=== PATIENT | male | born 1960 | race Caucasian/White ===

== ENCOUNTER 2023-09-04 14:13 | Emergency (ER) | payer OTHER ==
[~2023-09-04] VITALS: Ht 170.2 cm; Wt 106.6 kg
[2023-09-04] MEDS ORDERED: PRED20 PO ×2 (14:40→17:41)
[2023-09-04] MEDS ORDERED: ALBU90OI INH (14:40)
[2023-09-04] MEDS ORDERED: Ropinirole HCl0.5 MG (14:41)
[2023-09-04] MEDS ORDERED: Hytrin2 MG PO (14:41)
[2023-09-04] MEDS ORDERED: ASMANEX HFA13 G4 (14:41)
[2023-09-04] MEDS ORDERED: Vitamin D1000 UNI1 PO (14:42)
[2023-09-04] MEDS ORDERED: STIOLTO RESPIMAT4 G1 INH (14:42)
[2023-09-04] MEDS ORDERED: NICODERM CQ1 EA25 TD (14:42)
[2023-09-04] MEDS ORDERED: AMLO5 PO (14:43)
[2023-09-04 15:05] LABS: BASOPHILS ABSOLUTE AUTO 0.15 K/mm3 (0.00-0.23); BASOPHILS PERCENT AUTO 2 % (0-2); EOSINOPHILS ABSOLUTE AUTO 0.24 K/mm3 (0.00-0.68); EOSINOPHILS PERCENT AUTO 4 % (0-6); Hematocrit 47.8 % (37.0-53.0); Hemoglobin 16.3 g/dL (13.5-17.5); IMMATURE GRAN ABSOLUTE AUTO 0.02 K/mm3 (0.00-0.10); IMMATURE GRAN PERCENT AUTO 0 % (0-1); LYMPHOCYTES ABSOLUTE AUTO 2.04 K/mm3 (0.84-5.20); LYMPHOCYTES PERCENT AUTO 30 % (21-46); MONOCYTES ABSOLUTE AUTO 0.75 K/mm3 (0.16-1.47); MONOCYTES PERCENT AUTO 11 % (4-13); Mean Corpuscular HGB 32.3 pg (26.0-34.0); Mean Corpuscular HGB Conc 34.1 g/dL (31.5-36.5); Mean Corpuscular Volume 95 fL (80-100); Mean Platelet Volume 10.2 fL (9.1-12.4); NEUTROPHILS PERCENT AUTO 54 % (41-73); Platelet Count 210 K/mm3 (150-400); RDW Coefficient Variation 12.7 % (11.7-14.2); RDW Standard Deviation 43.2 fL (35.1-46.3); Red Blood Cell Count 5.05 M/mm3 (4.30-5.90)
[2023-09-04 15:08] LABS: Albumin, Blood 3.9 g/dL (3.4-5.0); Albumin/Globulin Ratio 0.9 (0.8-1.8); Bilirubin, Total 0.8 mg/dL (0.1-1.0); Bun/Creatinine Ratio 27.5 (12.0-20.0); Calcium, Blood 9.3 mg/dL (8.5-10.1); Creatinine, Blood 0.58 mg/dL (0.60-1.20); Globulin, Blood 4.3 g/dL (2.2-4.0); Total Protein, Blood 8.2 g/dL (6.4-8.2)
[2023-09-04 15:09] LABS: Potassium, Blood 5.5 mmol/L (3.5-5.5)
[2023-09-04 15:35] LABS: Base Excess Venous 4.6 mmol/L; Bicarbonate Venous 26.9 mmol/L (24.0-30.0); PCO2 Venous 49.1 mmHg (38-42); pH Blood Venous 7.39 (7.34-7.37)
[2023-09-04 16:01] LABS: Influenza A, PCR NEGATIVE (NEGATIVE); Influenza B, PCR NEGATIVE (NEGATIVE); Resp Syncytial Virus, PCR NEGATIVE (NEGATIVE); SARS-Cov-2 (COVID-19) PCR, MMC NEGATIVE (NEGATIVE)
[2023-09-04] MEDS ORDERED: AZIT250 PO (17:41)
[2023-09-04] MEDS ORDERED: HYDHCL25 PO (17:41)
[2023-09-04] MEDS ORDERED: AMOCLA875 PO (17:41)
[2023-09-04 17:45] VITALS: BP 150/93
[2023-09-05] MEDS ORDERED: PRED20 PO (14:44)
[2023-09-05] MEDS ORDERED: AZIT250 PO (14:44)
[2023-09-05] MEDS ORDERED: HYDHCL25 PO (14:44)
== END 2023-09-04 18:06 | disposition home or self-care (01) ==
LOC: ER 14:13
PROVIDERS: Student in an Organized Health Care Education/Training Program
DX: J44.1 Chronic obstructive pulmonary disease with (acute) exacerbation (principal); J18.9 Pneumonia, unspecified organism; F41.9 Anxiety disorder, unspecified; F17.290 Nicotine dependence, other tobacco product, uncomplicated; F12.10 Cannabis abuse, uncomplicated; Z20.822 Contact with and (suspected) exposure to COVID-19; I10 Essential (primary) hypertension; G47.33 Obstructive sleep apnea (adult) (pediatric); Z79.52 Long term (current) use of systemic steroids; Z79.899 Other long term (current) drug therapy
CPT/HCPCS: 0241U; 71045; 80053; 82803; 83880; 84484; 85025; 93005; 93010; 94644; 94660; 94664; 96365; 96375; 99285-25; A9270; J2060; J3475

== ENCOUNTER 2024-11-19 13:21 | Inpatient (IN) | payer OTHER ==
[~2024-11-19] VITALS: Ht 175.3 cm; Wt 102.8 kg
[~2024-11-19 13:21] MED LIST: ALBU90OI INH; AMLO5 PO; AMOCLA875 PO; ASMANEX HFA13 G4 INH; AZIT250 PO; HYDHCL25 PO; Hytrin2 MG PO; IBUP800 PO; LIDO700A20 TOP; NICODERM CQ1 EA25 TD; PRED20 PO; Ropinirole HCl0.5 MG PO; STIOLTO RESPIMAT4 G1 INH; Vitamin D1000 UNI1 PO
[2024-11-19] MEDS ORDERED: Albuterol 2.5 MG/3 ML VIAL INH SCH ×2 (13:30→14:50)
[2024-11-19] MEDS ORDERED: Ipratropium/Albuterol SulF 2.5-0.5MG/3 ML Amp INH ONE (13:30)
[2024-11-19 13:38] LABS: Base Excess Venous 5.2 mmol/L; Bicarbonate Venous 26.2 mmol/L (24.0-30.0); PCO2 Venous 62.3 mmHg (38-42); pH Blood Venous 7.31 (7.34-7.37)
[2024-11-19 13:41] LABS: BASOPHILS ABSOLUTE AUTO 0.08 K/mm3 (0.00-0.23); BASOPHILS PERCENT AUTO 1 % (0-2); EOSINOPHILS ABSOLUTE AUTO 0.03 K/mm3 (0.00-0.68); EOSINOPHILS PERCENT AUTO 1 % (0-6); Hematocrit 48.7 % (37.0-53.0); Hemoglobin 16.9 g/dL (13.5-17.5); IMMATURE GRAN ABSOLUTE AUTO 0.03 K/mm3 (0.00-0.10); IMMATURE GRAN PERCENT AUTO 1 % (0-1); LYMPHOCYTES ABSOLUTE AUTO 1.54 K/mm3 (0.84-5.20); LYMPHOCYTES PERCENT AUTO 25 % (21-46); MONOCYTES ABSOLUTE AUTO 1.15 K/mm3 (0.16-1.47); MONOCYTES PERCENT AUTO 18 % (4-13); Mean Corpuscular HGB 32.4 pg (26.0-34.0); Mean Corpuscular HGB Conc 34.7 g/dL (31.5-36.5); Mean Corpuscular Volume 94 fL (80-100); Mean Platelet Volume 10.1 fL (9.1-12.4); NEUTROPHILS ABSOLUTE AUTO 3.44 K/mm3 (1.96-9.15); NEUTROPHILS PERCENT AUTO 55 % (41-73); Platelet Count 150 K/mm3 (150-400); RDW Coefficient Variation 12.7 % (11.7-14.2); RDW Standard Deviation 43.6 fL (35.1-46.3); Red Blood Cell Count 5.21 M/mm3 (4.30-5.90); White Blood Cell Count 6.27 K/mm3 (4.00-11.30)
[2024-11-19 14:02] LABS: Albumin, Blood 3.9 g/dL (3.4-5.0); Albumin/Globulin Ratio 0.9 (0.8-1.8); Bilirubin, Total 0.7 mg/dL (0.1-1.0); Bun/Creatinine Ratio 21.9 (12.0-20.0); Calcium, Blood 8.9 mg/dL (8.5-10.1); Creatinine, Blood 0.64 mg/dL (0.60-1.20); Globulin, Blood 4.3 g/dL (2.2-4.0); Potassium, Blood 4.3 mmol/L (3.5-5.5); Total Protein, Blood 8.2 g/dL (6.4-8.2)
[2024-11-19] MEDS ORDERED: Azithromycin 500 MG in NS 250 ML IV ONE (14:50)
[2024-11-19 15:28] LABS: CORONAVIRUS COVID-19 AG Negative (NEGATIVE); INFLUENZA A AG Negative (NEGATIVE); INFLUENZA B AG Negative (NEGATIVE)
[2024-11-19] MEDS ORDERED: MethylPREDNISolone Sod Succ 125 MG Vial IV SCH (16:00)
[2024-11-19] MEDS ORDERED: Ipratropium/Albuterol SulF 2.5-0.5MG/3 ML Amp INH SCH (16:00)
[2024-11-19] MEDS ORDERED: HydrALAZINE HCl 20 MG / ML 1ML Vial IV PRN (16:00)
[2024-11-19] MEDS ORDERED: FLU VACC TS2024-25(6MOS UP)/PF 45 MCG/0.5 ML SYRINGE IM PRN (16:00)
[2024-11-19 17:36] VITALS: BP 107/86
--- NOTE | 2024-11-19 18:54 | NUR ---
PT ARRIVED FROM THE ER, PT WAS ABLE TO STAND AND TRANSFER. PT ON 6L OF O2 STILL GETTNG SOB WITH EXERTION TRIPODDING, PT SWITCHED BACK RIHT AWAY TO BIPAP WITH 40% FIO2, PT TOLERATING WELL AT THIS TIME, VITALS HRR SR 90'S, SBP 107, SATS ABOVE 90% ON BIPAP, AFEBRILE. PT ALERT AND ORIENTED X4, PLEASANT AND COOPERATIVE WITH CARES. NOW RESTING IN BED ESTHER REPORT TO ONCOMNG SHIFT
[2024-11-19 20:00] VITALS: BP 97/70
[2024-11-19 23:30] VITALS: BP 112/78
[2024-11-20 04:34] VITALS: BP 116/75
--- NOTE | 2024-11-20 05:29 | NUR ---
SHIFT SUMMARY PT ALERT/OX4, BUT DID SLEEP THROUGH MOST OF SHIFT. ALWAYS EASILY AROUSABLE. PT REMAINED ON BIPAP T/O SHIFT. CURRENT BIPAP SETTINGS 18/8 25%. NOTABLE INCREASED WORK OF BREATHING AND ACCESSORY MUSCLE USE. SATTING ABOVE 90%. PT IN A SINUS RHYTHM, BUT HAD FEW VERY BRIEF EPISODES OF BRADYCARDIA INTO THE 40'S WITHOUT ACCOMPANYING SYMPTOMS. PT UNSURE OF HOME MEDICATIONS, [facility]. AWAITING FAXED MED REC. NO ACUTE EVENTS THIS SHIFT.
[2024-11-20 05:34] LABS: Bun/Creatinine Ratio 28.3 (12.0-20.0); Calcium, Blood 8.7 mg/dL (8.5-10.1); Creatinine, Blood 0.57 mg/dL (0.60-1.20); Potassium, Blood 4.3 mmol/L (3.5-5.5)
[2024-11-20] MEDS ORDERED: Pantoprazole Sodium 20 MG Tab PO SCH (06:00)
[2024-11-20] MEDS ORDERED: HyDROXyzine HCl 25 MG Tab PO PRN (07:55)
[2024-11-20] MEDS ORDERED: Albuterol HFA200 ACT/6.7 GM INH INH PRN (08:25)
[2024-11-20 08:47] VITALS: BP 140/97
[2024-11-20] MEDS ORDERED: Cholecalciferol 1000 Unit Tablet (=25MCG) PO SCH (09:00)
[2024-11-20] MEDS ORDERED: CefTRIAXone Sodium 1,000 MG in NS 100 ML IV SCH (09:00)
[2024-11-20] MEDS ORDERED: Nicotine 14 MG PATCH TOP SCH ×2 (09:00)
[2024-11-20] MEDS ORDERED: Azithromycin 250 MG Tab PO SCH (09:00)
[2024-11-20] MEDS ORDERED: Enoxaparin 40 MG/0.4 ML SYR SC SCH (09:00)
[2024-11-20 12:02] VITALS: BP 122/93
[2024-11-20 16:47] VITALS: BP 112/73
--- NOTE | 2024-11-20 17:34 | NUR ---
Shift Summary Pt alert, oriented 4; anxious at times. Up with sba. Pt denies pain, chest pain/pressure, nausea, dizziness and numb/tingling. Pt reports increased sob while off the bipap, attempted 2 to take bipap off, desaturated quickly. Bipap 18/8 25% fi02. Tele sinus 70's, bp stable. Abd soft, nontender +bt, large bm during shift. Other vss. No other acute changes noted. Will continue to monitor.
[2024-11-20 19:45] VITALS: BP 110/69
[2024-11-20] MEDS ORDERED: Doxazosin Mesylate 2 MG Tab PO SCH (21:00)
[2024-11-20] MEDS ORDERED: Acetaminophen 325 MG TABLET PO ONE (22:00)
[2024-11-21 04:52] VITALS: BP 114/75
--- NOTE | 2024-11-21 05:04 | NUR ---
SHIFT SUMMARY PT A/O, ENDORSES HEADCHE 05/08, TREATED PER NOV. TRANSITIONED FROM BIPAP TO HOME CPAP AND MAINTAINING O2 SATURATION ABOVE 90%. PT TOLERATING CPAP WELL. NO ACUTE EVENTS THIS SHIFT.
[2024-11-21 07:34] VITALS: BP 128/68
[2024-11-21] MEDS ORDERED: rOPINIRole HCl 0.25 MG Tab PO ONE (08:30)
[2024-11-21] MEDS ORDERED: Fluticasone 0.05% Nasal Spray SCH (09:00)
[2024-11-21 14:49] VITALS: BP 115/86
--- NOTE | 2024-11-21 14:52 | NUR ---
PT TRANSITIONED TO MEDICAL NO TELE. NO ACUTE CHANGE FOR THE SHIFT, PT ABLE TO TOLERATE 6L OF O2 VIA NASAL CANNULA, MOSTLY ON HOME BIPAP WHEN RESTING. PT WAS VERY ANXIOUS THIS MORNING GETTING SOB WITH EXERTION PT WAS EDUCATED ON DEEP BREATHING EXERCISES, WAS GIVEN A DOSE OF HYDROXYZINE AND A ONE TIME DOSE OF REQUIP FOR RESTLESS LEG SYNDROME, PT SLEPT SINCE THEN. PT ABLE TO EAT BREAKFAST REFUSED LUNCH DUE TO PT SLEEPING. NO OTHER ISSUES ENCOUNTERED FOR THE SHIFT. PT TRANSFERRED VIA WHEELCHAIR ALL BELONGINGS SENT WITH THE PT, DAUGHTER ROE MADE AWARE VIA PHONE CALL
--- NOTE | 2024-11-21 14:53 | NUR ---
ARRIVAL PT ARRIVED TO UNIT FROM PACU. REPORT RECIEVED FROM PCU, RN. BELONGINGS AND HOME BIPAP BROUGHT WITH PATIENT. SITTING UP IN CHAIR ON 6L NASAL CANULA. SHORT OF BREATH WITH EXERTION BUT RECOVERING AND SATS AT 97%. RT IN ROOM GIVING BREATHING TREATMENT AT THIS TIME.
[2024-11-21 19:43] VITALS: BP 122/81
[2024-11-21] MEDS ORDERED: rOPINIRole HCl 0.25 MG Tab PO SCH (21:00)
[2024-11-22 05:25] VITALS: BP 115/80
--- NOTE | 2024-11-22 06:07 | NUR ---
NOC SHIFT SUMMARY- PT STILL HAVING SOB W/ MINIMAL EXERTION. PT HAS SLEPT FOR MOST OF SHIFT. PT WEARING CPAP AND SPO2 > 90%. PT VOIDING AND DRINKING FLUIDS. CALL LIGHT IN REACH.
[2024-11-22 07:09] VITALS: BP 104/72
[2024-11-22] MEDS ORDERED: MethylPREDNISolone Sod Succ 125 MG Vial IV SCH (09:00)
[2024-11-22 16:48] VITALS: BP 131/76
--- NOTE | 2024-11-22 16:52 | NUR ---
REPORT GIVEN TO NED REBOLLEDO. PT TO TRANSFER TO ROOM 339.
[2024-11-22 17:17] VITALS: BP 128/87
--- NOTE | 2024-11-22 17:17 | NUR ---
ASSUMED CARE OF PATIENT. ARRIVED TO FLOOR VIA W/C ACCOMPANIED BY MOLINA PELAYO AND STUDENT NURSE. 4LPM/NC. TRIPOD POSTURING WITH SHALLOW BREATHS. IMMEDIATELY PLACED ON BiPap c CONTINUOUS BiOx. LUNG SOUNDS DIMINISHED T/O c COARSE CRACKLES IN LLL.
--- NOTE | 2024-11-22 17:27 | NUR ---
TRANSFERRED PT TO ROOM 339. TRANSFERRED BELONGINGS, MEDS, AND CHART. MOLINA OVIEDO, BEDSIDE.
--- NOTE | 2024-11-22 18:28 | NUR ---
END OF SHIFT SUMMARY: A&Ox4. UNCOOPERATIVE c HOME O2 EVAL TODAY; INSISTS ON KEEPING BiPap ON AT MOST TIMES. CALLS APPROPRIATELY AND IS ABLE TO ADVOCATE NEEDS EFFECTIVELY. CONTINENT OF BOWEL AND BLADDER. USES BSC DUE TO OXYGEN DEMANDS. EXTREMELY HIGH ANXIETY REGARDING DEOXYGENATING AND DYSPNEA WITH ANY EXERTION. NO PAIN. BED IN LOWEST POSITION, CALL LIGHT WITHIN REACH, ALL NEEDS MET. REPORT TO ONCOMING NURSE.
[2024-11-22 19:44] VITALS: BP 115/82
--- NOTE | 2024-11-23 04:13 | NUR ---
SHIFT SUMMARY 64 YR M ADMITTED ON 11/19/24. FULL CODE. NO ACUTE CHANGES THIS SHIFT. PT HAS WORN BIPAP FOR ENTIRE SHIFT. HE SAT AT BEDSIDE FOR ABOUT AN HOUR INTO THE SHIFT THEN WENT TO BED. O2 SATS HAVE REMAINED WNL. PT CALLS APPROPRIATELY FOR ASSISTANCE AND USES THE URINAL AT BEDSIDE. WILL CONTINUE TO MNOITOR. BED IN LOW POSITION AND CALL LIGHT IN REACH.
[2024-11-23 04:37] VITALS: BP 129/88
[2024-11-23 07:38] VITALS: BP 139/89
[2024-11-23] MEDS ORDERED: PRED20 PO (15:46)
[2024-11-23] MEDS ORDERED: DOXY100 PO (15:47)
--- NOTE | 2024-11-23 16:38 | NUR ---
DISCHARGE NOTE: PT VERBALIZED UNDERSTANDING OF DISCHARGE INSTRUCTIONS AND MEDICATIONS ORDERED. PT EXPERIENCED DYSPNEA WITH ATTEMPTS TO TRANSFER TO WHEELCHAIR. MD TO BEDSIDE TO ASSESS PATIENT. PT EXPRESSED DESIRE TO LEAVE EVEN WITH THE SHORTNESS OF BREATH. HE WAS ESCORTED TO HIS DAUGHTER'S CARE BY THIS RN WITH 2L NC. PT DENIES NEEDS AT TIME OF DISCHARGE.
== END 2024-11-23 16:29 | disposition home health service (06) | DRG 193 ==
LOC: ER 13:21 → PCU 15:56 → SURS 15:56 → MEDS 15:56 → PCU 17:25 → SURS 11-21 14:50 → MEDS 11-22 17:21
PROVIDERS: Student in an Organized Health Care Education/Training Program; ADMIT Internal Medicine
PROC: 5A09457 Assistance with Respiratory Ventilation, 24-96 Consecutive Hours, Continuous Positive Airway Pressure (ICD-10-PCS; principal; 2024-11-19)
DX: J18.9 Pneumonia, unspecified organism (principal); J96.01 Acute respiratory failure with hypoxia; J96.02 Acute respiratory failure with hypercapnia; J44.1 Chronic obstructive pulmonary disease with (acute) exacerbation; J44.0 Chronic obstructive pulmonary disease with (acute) lower respiratory infection; F41.9 Anxiety disorder, unspecified; I10 Essential (primary) hypertension; F17.210 Nicotine dependence, cigarettes, uncomplicated; G47.33 Obstructive sleep apnea (adult) (pediatric); Z71.6 Tobacco abuse counseling; Z87.19 Personal history of other diseases of the digestive system; Z79.899 Other long term (current) drug therapy; Z79.1 Long term (current) use of non-steroidal anti-inflammatories (NSAID); Z79.2 Long term (current) use of antibiotics
CPT/HCPCS: 36415; 71045; 80048; 80053; 82803; 83735; 85025; 87428-QW; 93005; 93010; 94640; 94644; 94645; 94660; 94664; 94761; 94762; 99285-25; A9270; J0456; J0696; J1650; J2470; J2919; J7050

== ENCOUNTER 2025-08-28 18:19 | Inpatient (IN) | payer OTHER ==
[~2025-08-28] VITALS: Ht 167.6 cm; Wt 98.6 kg
[~2025-08-28 18:19] MED LIST changes: +DOXY100 PO
[2025-08-28] MEDS ORDERED: Albuterol 2.5 MG/3 ML VIAL INH SCH (18:35)
[2025-08-28 19:20] LABS: BASOPHILS ABSOLUTE AUTO 0.20 K/mm3 (0.00-0.23); BASOPHILS PERCENT AUTO 3 % (0-2); EOSINOPHILS ABSOLUTE AUTO 0.31 K/mm3 (0.00-0.68); EOSINOPHILS PERCENT AUTO 4 % (0-6); Hematocrit 48.9 % (37.0-53.0); Hemoglobin 16.3 g/dL (13.5-17.5); IMMATURE GRAN ABSOLUTE AUTO 0.04 K/mm3 (0.00-0.10); IMMATURE GRAN PERCENT AUTO 1 % (0-1); LYMPHOCYTES ABSOLUTE AUTO 2.90 K/mm3 (0.84-5.20); LYMPHOCYTES PERCENT AUTO 39 % (21-46); MONOCYTES ABSOLUTE AUTO 0.54 K/mm3 (0.16-1.47); MONOCYTES PERCENT AUTO 7 % (4-13); Mean Corpuscular HGB Conc 33.3 g/dL (31.5-36.5); Mean Corpuscular Volume 96 fL (80-100); NEUTROPHILS ABSOLUTE AUTO 3.53 K/mm3 (1.96-9.15); NEUTROPHILS PERCENT AUTO 47 % (41-73); NRBC ABSOLUTE 0.00 K/mm3 (0.00-0.02); NRBC Auto 0.0 /100 WBC (0.0-0.2); Platelet Count 219 K/mm3 (150-400); RDW Coefficient Variation 12.2 % (11.7-14.2); RDW Standard Deviation 43.1 fL (35.1-46.3)
[2025-08-28 19:34] LABS: Alanine Aminotransfer (ALT/SGP 134.0 U/L (12-78); Albumin, Blood 3.9 g/dL (3.4-5.0); Albumin/Globulin Ratio 1.0 (0.8-1.8); Anion Gap 10.0 mmol/L (3-11); Aspartate Aminotrans (AST/SGOT 110.0 U/L (12-37); Bilirubin, Total 0.5 mg/dL (0.1-1.0); Blood Urea Nitrogen 11.0 mg/dL (8-24); CO2, Blood 25.0 mmol/L (21-32); Calcium, Blood 8.3 mg/dL (8.5-10.1); Chloride, Blood 109.0 mmol/L (98-108); Creatinine, Blood 0.53 mg/dL (0.60-1.20); Globulin, Blood 4.0 g/dL (2.2-4.0); Glucose, Blood 179.0 mg/dL (70-99); Potassium, Blood 4.4 mmol/L (3.5-5.5); Sodium, Blood 140.0 mmol/L (136-145); Total Protein, Blood 7.9 g/dL (6.4-8.2)
[2025-08-28 19:35] LABS: pH Blood Venous 7.31 (7.34-7.37)
[2025-08-28] MEDS ORDERED: LORazepam 2 MG/ML 1ML Injection IV ONE (19:35)
[2025-08-28] MEDS ORDERED: FLU VACC TS2025(65UP)/MF59C/PF 45 MCG/0.5 ML SYRINGE IM SCH (21:10)
[2025-08-28 21:11] LABS: Ethanol (Alcohol), Blood, Med 201.0 mg/dL
[2025-08-28] MEDS ORDERED: LORazepam 2 MG/ML 1ML Injection IV PRN (21:15)
[2025-08-28] MEDS ORDERED: Ipratropium/Albuterol SulF 2.5-0.5MG/3 ML Amp INH SCH (21:15)
[2025-08-28 21:56] LABS: pH Blood Venous 7.32 (7.34-7.37)
[2025-08-28 23:14] VITALS: BP 145/94
--- NOTE | 2025-08-29 00:26 | NUR ---
TRANSFER TO PCU RECEIVED REPORT FROM MEDICAL PLANNER AT 2303. PT ARRIVED TO UNIT AT 2308. SKIN ASSESSMENT DONE WITH MOLINA JASON. PT AOX4 THOUGH HAS SOME CONFUSION REGARDING HIS HOME MEDICATIONS. STATES HIS DAUGHTER ROE WILL BE ABLE TO REVIEW HIS MED LIST IN THE AM WHEN SHE COMES TO VISIT. PT DOES ADMIT TO DAILY DRINKING BUT COULD NOT STATE AN AMOUNT. STATED HIS LAST DRINK WAS PRIOR TO COMING TO THE HOSPITAL. PT STATES HE ALSO SMOKES 1-2 CIGARETTES PER DAY AND HAS SMOKED FOR MOST OF HIS LIFE. IS NOT INTERESTED IN SMOKING CESSATION INFORMATION AT THIS TIME. PT ON CPAP, TOLERATING WELL. SPO2 >94%. PT WITH SOME NON-BLANCHABLE REDNESS ON LEFT BUTTOCK. CALLED MD GARDNER FOR CIWA ORDERS. PT DOES NOT EXHIBIT ANY WITHDRAWAL SYMPTOMS AT THIS TIME. NO C/O CHEST PAIN OR PRESSURE. NO C/O SOB. PT ABLE TO MAKE ALL NEEDS KNOWN. CALL LIGHT WITHIN REACH AND PT ABLE TO CALL FOR ASSISTANCE APPROPRIATELY. URINAL AT BEDSIDE AND PT ABLE TO USE WITHOUT ASSISTANCE.
[2025-08-29 01:24] LABS: pH Blood Venous 7.32 (7.34-7.37)
[2025-08-29] MEDS ORDERED: LORazepam 2 MG/ML 1ML Injection IV PRN ×3 (01:35→01:40)
[2025-08-29 02:43] VITALS: BP 134/83
[2025-08-29 03:52] VITALS: BP 107/59
[2025-08-29 04:59] LABS: BASOPHILS ABSOLUTE AUTO 0.05 K/mm3 (0.00-0.23); BASOPHILS PERCENT AUTO 1 % (0-2); EOSINOPHILS ABSOLUTE AUTO 0.00 K/mm3 (0.00-0.68); EOSINOPHILS PERCENT AUTO 0 % (0-6); Hematocrit 46.5 % (37.0-53.0); Hemoglobin 15.4 g/dL (13.5-17.5); IMMATURE GRAN ABSOLUTE AUTO 0.06 K/mm3 (0.00-0.10); IMMATURE GRAN PERCENT AUTO 1 % (0-1); LYMPHOCYTES ABSOLUTE AUTO 0.51 K/mm3 (0.84-5.20); LYMPHOCYTES PERCENT AUTO 6 % (21-46); MONOCYTES ABSOLUTE AUTO 0.14 K/mm3 (0.16-1.47); MONOCYTES PERCENT AUTO 2 % (4-13); Mean Corpuscular HGB Conc 33.1 g/dL (31.5-36.5); Mean Corpuscular Volume 96 fL (80-100); NEUTROPHILS ABSOLUTE AUTO 7.33 K/mm3 (1.96-9.15); NEUTROPHILS PERCENT AUTO 91 % (41-73); NRBC ABSOLUTE 0.00 K/mm3 (0.00-0.02); NRBC Auto 0.0 /100 WBC (0.0-0.2); Platelet Count 195 K/mm3 (150-400); RDW Coefficient Variation 12.2 % (11.7-14.2); RDW Standard Deviation 43.6 fL (35.1-46.3); pH Blood Venous 7.38 (7.34-7.37)
[2025-08-29 05:21] LABS: Alanine Aminotransfer (ALT/SGP 128.0 U/L (12-78); Albumin, Blood 3.7 g/dL (3.4-5.0); Albumin/Globulin Ratio 0.9 (0.8-1.8); Anion Gap 12.0 mmol/L (3-11); Aspartate Aminotrans (AST/SGOT 96.0 U/L (12-37); Bilirubin, Total 0.6 mg/dL (0.1-1.0); Blood Urea Nitrogen 14.0 mg/dL (8-24); CO2, Blood 27.0 mmol/L (21-32); Calcium, Blood 8.8 mg/dL (8.5-10.1); Chloride, Blood 101.0 mmol/L (98-108); Creatinine, Blood 0.58 mg/dL (0.60-1.20); Globulin, Blood 3.9 g/dL (2.2-4.0); Glucose, Blood 303.0 mg/dL (70-99); Magnesium, Blood 2.0 mg/dL (1.6-2.4); Potassium, Blood 4.4 mmol/L (3.5-5.5); Sodium, Blood 136.0 mmol/L (136-145); Total Protein, Blood 7.6 g/dL (6.4-8.2)
--- NOTE | 2025-08-29 05:29 | NUR ---
SHIFT SUMMARY PT C/O FEELING SOB WITH BIPAP ON. RT NOTIFIED. PT INCREASED TO 18/8 WITH 3L BLEED IN. PT REPORTED SOME IMPROVEMENT. PT ALSO GIVEN 1MG IV ATIVAN FOR ANXIETY. FIRST CIWA SCORE 10. PT MEDICATED PER EMAR. SECOND CIWA 6. PT IS AOX4. ABLE TO STAND AT BEDSIDE TO USE URINAL WITH SBA, THOUGH PT DOES NOT CALL FOR ASSISTANCE. BED ALARM ON. CALL LIGHT WITHIN REACH. MED REC UNABLE TO BE COMPLETED UPON ARRIVAL BECAUSE PT UNABLE TO RECALL MEDICATION NAMES. STATES HIS DAUGHTER ROE WILL BE ABLE TO PROVIDE INFORMATION IN THE MORNING. PT BLACKFEET. BED IN LOWEST AND LOCKED POSITION.
[2025-08-29 07:53] VITALS: BP 123/86
[2025-08-29] MEDS ORDERED: Enoxaparin 40 MG/0.4 ML SYR SC SCH (09:00)
--- NOTE | 2025-08-29 09:00 | NUR ---
AM NOTE: PATIENT ALERT AND ORIENTED. NOTED TO HAVE INTERMIT ANXIETY AND BUE TREMORS. CIWA SCORING 3-8 THIS MORING AND MEDICATED PER EMAR. MOVING ALL EXTREMITIES ABLE TO SIT UP IN BED IND. 1 PERSON ASSIST TO STAND AND USE URINAL. PERRLA. MISSING GLASSES. DAUGHTER ROE CALLED AND PLANS TO BRING PATIENT HOME MED LIST IN THIS AFTERNOON. ON BIPAP AT 18/8 WITH 2-3L OXYGEN BLEED IN. ABLE TO TAKE SMALL BREAK THIS MORNING ON 3-4L NASAL CANNULA TO EAT BREAKFAST BUT INCREASED WORK OF BREATHING AFTER 10 MIN AND BIPAP REPLACED. PATIENT WEARS CPAP AT BASELINE AND 4L NASAL CANNULA CONTINUOUS THROUGHOUT DAY. LUNG SOUNDS DIMINISHED THROUGHOUT. PATIENT STATES HE SMOKES 1-2 CIGARETTES DAILY BUT DOES NOT WEAR HIS OXYGEN WHEN SMOKING. DENIES NICOTINE REPLACEMENT. TELE SHOWING SR/ST WITH HR 90-130'S. DEPENDING ON ACTIVITY. DENIES CHEST PAIN/PRESSURE/PALPITATIONS. NO EDEMA NOTED. IV SALINE LOCKED. BOWEL TONES PRESENT. TOLERATING PO DIET WITHOUT ISSUES. USING URINAL WITH 1 PERSON STANDING ASSISTANCE. DENIES ABDOMINAL PAIN/NAUSEA. SKIN PALE WITH SCATTERED BRUISING. DR. PINTO TO BEDSIDE THIS MORNING. THIS RN PRESENT FOR MD ROUNDS. CALL LIGHT IN REACH. RESTING IN BED AT THIS TIME WITH BIPAP AND BED ALARM IN PLACE.
[2025-08-29 11:29] VITALS: BP 123/93
[2025-08-29] MEDS ORDERED: NS IV SCH (14:00)
[2025-08-29] MEDS ORDERED: THIAMINE HCL IV SCH (14:00)
[2025-08-29 15:20] VITALS: BP 140/84
[2025-08-29] MEDS ORDERED: MULVITA PO (15:43)
[2025-08-29] MEDS ORDERED: VITAMIN D325 MC3 PO (15:45)
[2025-08-29] MEDS ORDERED: IRON PO (15:47)
[2025-08-29] MEDS ORDERED: ALBU2.5V5 INH (15:49)
--- NOTE | 2025-08-29 15:54 | NUR ---
CHAKA AU TO BEDSIDE AND THIS RN PROVIDED UPDATE. HOME MED LIST COMPLETED AND DR. PINTO UPDATED.
--- NOTE | 2025-08-29 18:41 | NUR ---
SHIFT SUMMARY: NO ACUTE CHANGES. PATIENT ABLE TO COME OFF BIPAP THIS EVENING FOR LONGER PERIOD OF TIME SURROUNDING DINNER. TOLERATING 1L NASAL CANNULA WHEN OFF BIPAP THIS EVENING. TELE REMAINS SR/ST WITH HR 90-110'S. TOLERATING PO DIET. BED BATH GIVEN. CIWA SCORES 3-8. DAUGHTER ROE IN THIS EVENING. GLASSES FOUND. CALL LIGHT IN REACH. DENIES NEEDS AT THIS TIME.
[2025-08-29 23:27] VITALS: BP 141/85
[2025-08-30 03:06] VITALS: BP 147/85
[2025-08-30 03:43] LABS: BASOPHILS ABSOLUTE AUTO 0.02 K/mm3 (0.00-0.23); BASOPHILS PERCENT AUTO 0 % (0-2); EOSINOPHILS ABSOLUTE AUTO 0.00 K/mm3 (0.00-0.68); EOSINOPHILS PERCENT AUTO 0 % (0-6); Hematocrit 46.1 % (37.0-53.0); Hemoglobin 15.4 g/dL (13.5-17.5); IMMATURE GRAN ABSOLUTE AUTO 0.06 K/mm3 (0.00-0.10); IMMATURE GRAN PERCENT AUTO 1 % (0-1); LYMPHOCYTES ABSOLUTE AUTO 0.58 K/mm3 (0.84-5.20); LYMPHOCYTES PERCENT AUTO 5 % (21-46); MONOCYTES ABSOLUTE AUTO 0.44 K/mm3 (0.16-1.47); MONOCYTES PERCENT AUTO 4 % (4-13); Mean Corpuscular HGB Conc 33.4 g/dL (31.5-36.5); Mean Corpuscular Volume 96 fL (80-100); NEUTROPHILS ABSOLUTE AUTO 11.03 K/mm3 (1.96-9.15); NEUTROPHILS PERCENT AUTO 91 % (41-73); NRBC ABSOLUTE 0.00 K/mm3 (0.00-0.02); NRBC Auto 0.0 /100 WBC (0.0-0.2); Platelet Count 192 K/mm3 (150-400); RDW Coefficient Variation 11.9 % (11.7-14.2); RDW Standard Deviation 42.0 fL (35.1-46.3)
--- NOTE | 2025-08-30 05:59 | NUR ---
SHIFT SUMMARY PT A&O X4, MAX CIWA THIS SHIFT OF 2, ABLE TO MAKE NEEDS KNOWN, MOVING ALL EXTREMITIES WITH PURPOSE, REPOSITIONING SELF IN BED, CALLS APPROPRIATELY. CONTINUOUS SPO2, SPO2 GREATER THAN 92% ON BIPAP 17/05, NO SIGNS OF RESPIRATORY DISTRESS NOTED, PT REPORTS IMPROVED WORK OF BREATHING. CONTINUOUS TELE MONITORING, [id number] S, BP STABLE WITH MAP GREATER THAN 65, CAP REFILL WNL, PULSES PRESENT T/O, PT DENIES CHEST P/P T/O THIS SHIFT. BOWEL TONES PRESENT IN ALL 4Q, PT DENIES FEELINGS OF CONSTIPATION. USING URINAL IND, URINE YELLOW IN COLOR. BED LOWEST POSITION, CALL LIGHT IN REACH, AWAITING TO GIVE REPORT TO ONCOMING RN.
[2025-08-30 06:20] LABS: Anion Gap 9.0 mmol/L (3-11); Blood Urea Nitrogen 21.0 mg/dL (8-24); CO2, Blood 30.0 mmol/L (21-32); Calcium, Blood 9.3 mg/dL (8.5-10.1); Chloride, Blood 98.0 mmol/L (98-108); Creatinine, Blood 0.69 mg/dL (0.60-1.20); Glucose, Blood 494.0 mg/dL (70-99); Potassium, Blood 4.6 mmol/L (3.5-5.5); Sodium, Blood 132.0 mmol/L (136-145)
[2025-08-30] MEDS ORDERED: Insulin Human Lispro 100 Units/ML 3ML Syringe SC SCH ×2 (07:30→11:30)
[2025-08-30 07:39] VITALS: BP 133/90
--- NOTE | 2025-08-30 08:30 | NUR ---
AM NOTE: PATIENT ALERT AND ORIENTED. DENIES PAIN. PERRLA, WEARING GLASSES. FOLLOWING COMMANDS. UP WITH SBA. ENCOURAGED TO GET UP TO RECLINER THIS MORNING. TELE SHOWING SR WITH HR 80-90'S. DENIES CHEST PAIN/PRESSURE/PALPITATIONS. NO EDEMA NOTED. SBP 130'S. ON BIPAP THIS MORNING SETTINGS 19/8 WITH 2L BLEED IN. TITRATED TO 1L NASAL CANNULA THIS MORNING SATING 93-95%. LUNG SOUNDS DIMINISHED. RESPIRATORY CARE IN FOR BREATHING TREATMENTS. SOB ON EXCERTION. BOWEL TONES PRESENT. TOLERATING PO DIET WITHOUT ISSUES. BLOOD SUGARS ELEVATED IN 400'S THIS MORNING. DR. ALEXANDRA CALLED TO INQUIRE ABOUT INSULIN ORDERS AND DR. ALEXANDRA UPDATED ORDERS, SEE CURRENT BLOOD SUGAR AND INSULIN ORDERS. PATIENT EDUCATED ON BLOOD SUGARS AND IV STERIODS. USING URINAL IND. CALL LIGHT IN REACH. DENIES NEEDS AT THIS TIME.
[2025-08-30] MEDS ORDERED: Insulin Human Lispro 100 Units/ML 3ML Syringe SC ONE (09:00)
[2025-08-30] MEDS ORDERED: Insulin Glargine 100 Unit/ML 3 ML SYR SC SCH (09:00)
[2025-08-30] MEDS ORDERED: Insulin Glargine-Yfgn 100 Unit/mL 3 ML SYR SC SCH ×3 (09:00→21:00)
[2025-08-30] MEDS ORDERED: Cholecalciferol 1000 Unit Tablet (=25MCG) PO SCH (09:00)
--- NOTE | 2025-08-30 09:11 | NUR ---
DR. ALEXANDRA TO BEDSIDE. THIS RN PRESENT FOR MD ROUNDING. NO NEW ORDERS FOR THIS RN TO PLACE.
--- NOTE | 2025-08-30 09:55 | NUR ---
BLOOD SUGAR [address] ALEXANDRA UPDATED. NO ADDITIONAL INSULIN AT THIS TIME. ORDERS TO RECHECK AT [address] ALEXANDRA. PATIENT UPDATED, SITTING IN RECLINER WITH BIPAP IN PLACE AND CALL LIGHT IN REACH.
[2025-08-30 11:24] VITALS: BP 105/73
--- NOTE | 2025-08-30 11:34 | NUR ---
AFTERNOON BLOOD SUGAR 365. DR. ALEXANDRA CALLED TO UPDATE. ORDERS TO CONTINUE WITH CURRENT INSULIN AND HIGH SLIDING SCALE DOSE OF 15 UNITS.
[2025-08-30 15:54] VITALS: BP 117/73
--- NOTE | 2025-08-30 16:11 | NUR ---
PATIENT HAD 20 SECOND RUN NON SUSTAINED VTACH WITH HR IN THE 150'S. PATIENT SLEEPING AT THIS TIME WITH BIPAP IN PLACE. VITALS SIGNS STABLE. NONSYMPTOMATIC. DR. ALEXANDRA CALLED TO UPDATE. PATIENT TO BE MEDICAL STATUS WITH TELE. MANAGER HELPDESK AND WINK CUTTER OPERATOR UPDATED. DR. ALEXANDRA ALSO UPDATED ON EVENING BLOOD SUGAR OF 323.
[2025-08-30 16:37] LABS: HEPATITIS A ANTIBODY, IGM Negative (Negative); HEPATITIS C AB CIA INTERP Negative (Negative); HEPATITIS C ANTIBODY CIA INDEX 0.08 IV
--- NOTE | 2025-08-30 18:03 | NUR ---
HOME BIPAP DELIVERED AND SET UP.
[2025-08-30 19:54] VITALS: BP 122/70
[2025-08-30 23:22] VITALS: BP 120/70
[2025-08-31 03:02] VITALS: BP 116/78
[2025-08-31 03:40] VITALS: BP 143/75
--- NOTE | 2025-08-31 03:43 | NUR ---
TRANSFER OF CARE/ SHIFT SUMMARY REPORT GIVEN TO MEDICAL HILARY @ APPROX 0315, PT TAKEN UP VIA WHEEL CHAIR TO ROOM 345 @ APPROX 0325. PT A&O X4, MAX CIWA THIS SHIFT OF 1, ABLE TO MAKE NEEDS KNOWN, MOVING ALL EXTREMITIES WITH PURPOSE, REPOSITIONING SELF IN BED, CALLS APPROPRIATELY. CONTINUOUS SPO2, SPO2 GREATER THAN 92% ON HOME CPAP, NO SIGNS OF RESPIRATORY DISTRESS NOTED. CONTINUOUS TELE MONITORING, SINUS 70-90 S/ PT HAD ONE 7 SECOND EPISODE OF SVT THIS SHIFT THAT WAS ASYMPTOMATIC, BP STABLE WITH MAP GREATER THAN 65, CAP REFILL WNL, PULSES PRESENT T/O, PT DENIES CHEST P/P T/O THIS SHIFT. BOWEL TONES PRESENT IN ALL 4Q, PT DENIES FEELINGS OF CONSTIPATION. USING URINAL IND, URINE YELLOW IN COLOR.
--- NOTE | 2025-08-31 04:06 | NUR ---
Transfer Note; Received pt via transfer from PCU via w/c AOX4 speech clear & able to make all needs known, all VS WNL, denies discomfort, ambulates independently & steadily, Bi-pap machine set-up and currently in use, IVL intact, Telemetry in place. Pt pleasant & in good spirits, no visible tremors and/or acute symptoms of withdrawals manifested. Stable & resting comfortably w call mann in reach at this time.
[2025-08-31 06:01] LABS: BASOPHILS ABSOLUTE AUTO 0.01 K/mm3 (0.00-0.23); BASOPHILS PERCENT AUTO 0 % (0-2); EOSINOPHILS ABSOLUTE AUTO 0.00 K/mm3 (0.00-0.68); EOSINOPHILS PERCENT AUTO 0 % (0-6); Hematocrit 43.0 % (37.0-53.0); Hemoglobin 14.7 g/dL (13.5-17.5); IMMATURE GRAN ABSOLUTE AUTO 0.06 K/mm3 (0.00-0.10); IMMATURE GRAN PERCENT AUTO 1 % (0-1); LYMPHOCYTES ABSOLUTE AUTO 0.76 K/mm3 (0.84-5.20); LYMPHOCYTES PERCENT AUTO 8 % (21-46); MONOCYTES ABSOLUTE AUTO 0.48 K/mm3 (0.16-1.47); MONOCYTES PERCENT AUTO 5 % (4-13); Mean Corpuscular HGB Conc 34.2 g/dL (31.5-36.5); Mean Corpuscular Volume 95 fL (80-100); NEUTROPHILS ABSOLUTE AUTO 8.71 K/mm3 (1.96-9.15); NEUTROPHILS PERCENT AUTO 87 % (41-73); NRBC ABSOLUTE 0.00 K/mm3 (0.00-0.02); NRBC Auto 0.0 /100 WBC (0.0-0.2); Platelet Count 168 K/mm3 (150-400); RDW Coefficient Variation 11.8 % (11.7-14.2); RDW Standard Deviation 40.7 fL (35.1-46.3)
[2025-08-31 06:57] LABS: Anion Gap 13.0 mmol/L (3-11); Blood Urea Nitrogen 24.0 mg/dL (8-24); CO2, Blood 22.0 mmol/L (21-32); Calcium, Blood 8.6 mg/dL (8.5-10.1); Chloride, Blood 102.0 mmol/L (98-108); Creatinine, Blood 0.58 mg/dL (0.60-1.20); Glucose, Blood 329.0 mg/dL (70-99); Potassium, Blood 3.7 mmol/L (3.5-5.5); Sodium, Blood 133.0 mmol/L (136-145)
[2025-08-31] MEDS ORDERED: MetFORMIN HCl 500 mg PO SCH (08:00)
[2025-08-31 08:01] VITALS: BP 138/93
[2025-08-31] MEDS ORDERED: Folic Acid 1 MG TAB PO SCH (09:00)
[2025-08-31 11:29] VITALS: BP 145/83
[2025-08-31] MEDS ORDERED: AMLO5 PO (11:50)
[2025-08-31] MEDS ORDERED: VITAMIN D325 MC3 PO (11:52)
[2025-08-31] MEDS ORDERED: FEROSUL325 M1 PO (11:52)
[2025-08-31] MEDS ORDERED: ROPINIROLE HCL0.5 MG PO (11:53)
[2025-08-31] MEDS ORDERED: STIOLTO RESPIMAT4 G2 INH (11:57)
[2025-08-31] MEDS ORDERED: GABA300 PO (11:59)
[2025-08-31] MEDS ORDERED: INSULIN GL100 UNIT/2 SC (12:02)
[2025-08-31] MEDS ORDERED: HUMALOG KW100 UNIT/1 SC (12:05)
[2025-08-31] MEDS ORDERED: METF500 PO (12:06)
[2025-08-31] MEDS ORDERED: B-1100 M1 PO (12:08)
[2025-08-31] MEDS ORDERED: PRED20 PO (12:08)
--- NOTE | 2025-08-31 12:54 | NUR ---
DISCHARGE NOTE PT DISCHARGED TO HOME, PICKED UP BY HIS DAUGHTER. INSULIN PEN AND SLIDING SCALE EDUCATION PROVIDED TO BOTH THE PT AND HIS DAUGHTER. INSULIN PEN USE WAS DEMONSTARTED AND THE USE OF THE SLIDING SCALE WAS ALSO TAUGHT BACK BY THE PT'S DAUGHTER. MEDICATIONS FAXED TO THE PHARMACY OF HIS CHOICE. DISCHARGE INFORMATION REVIEWED WITH THE PT AND HIS DAUGHTER. BIPAP PROVIDED TO THE PT ALONG WITH OTHER PERSONAL BELONGINGS. IV REMOVED. TELE RETURNED.
== END 2025-08-31 12:53 | disposition home health service (06) | DRG 189 ==
LOC: ER 18:19 → PCU 21:10 → MEDS 08-31 03:26
PROVIDERS: Emergency Medicine; Internal Medicine; Student in an Organized Health Care Education/Training Program; ADMIT Student in an Organized Health Care Education/Training Program
PROC: 5A09357 Assistance with Respiratory Ventilation, Less than 24 Consecutive Hours, Continuous Positive Airway Pressure (ICD-10-PCS; principal; 2025-08-28)
DX: J96.21 Acute and chronic respiratory failure with hypoxia (principal); J44.1 Chronic obstructive pulmonary disease with (acute) exacerbation; F10.139 Alcohol abuse with withdrawal, unspecified; J96.22 Acute and chronic respiratory failure with hypercapnia; G47.33 Obstructive sleep apnea (adult) (pediatric); K70.30 Alcoholic cirrhosis of liver without ascites; F41.9 Anxiety disorder, unspecified; I10 Essential (primary) hypertension; F17.210 Nicotine dependence, cigarettes, uncomplicated; F10.129 Alcohol abuse with intoxication, unspecified; E11.65 Type 2 diabetes mellitus with hyperglycemia; Z87.19 Personal history of other diseases of the digestive system; Z79.899 Other long term (current) drug therapy; Z71.6 Tobacco abuse counseling
CPT/HCPCS: 36415; 71045; 76705; 80048; 80053; 80074; 80320; 82803; 82947; 83036; 83735; 83880; 85025; 93005; 93010; 94640; 94644; 94660; 94664; 94762; 96374; 99285-25; A9270; J1650; J1815; J2060; J2919; J3411; J7512